=== PATIENT | male | born 1995 | race Caucasian/White ===

== ENCOUNTER 2024-12-19 09:32 | Emergency (ER) | payer OTHER, SELFPAY ==
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
[2024-12-19 09:35] VITALS: BP 143/87; PULSE 63; RESP 14; TEMP 36.4; O2SAT 99; BMI 35.0
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
--- OUTSIDE RECORDS SUMMARY | 2024-12-19 09:51 | XMS_ITS | Clinical Summary ---
Author Organization [facility] Address [address] [place] [address] Care Team Providers Care Balance Truer Name Role Phone Unavailable Primary Care Provider Unavailabl e Source Comments PLEASE NOTE, if this patient is a minor, it may be UNLAWFUL to discuss sensitive information that is contained in these records (such as FAMILY PLANNING, MENTAL HEALTH or SUBSTANCE ABUSE) with the minor patient's parent or other person without the patient's specific authorization.[facility] Social History Tobacco Use Types Packs/Day Years Used Date Smoking Tobacco: Never Assessed Social Connections Answer Date Recorded Connectedness 0 11/20/2023 Financial Resource Strain Answer Date R ecorded Financial Resource Strain 0 2021 Stress Answer Date Recorded Stress 0 03/14/2021 Physical Activity Answer Date Recorded Physical Activity 0 03/14/2021 Food Insecurity Answer Date Recorded Food 0 12/04/2023 Transportation Needs Answer Date Record ed Transportation 0 03/14/2021 Housing Stability Answer Date Recorded Housing 0 03/14/2021 Safety and Environment Answer Date Az rded Safety 0 03/14/2021 Utilities Answer Date Recorded Utilities 0 03/14/2021 Employment Answer Date Recorded Stress 0 11/20/2023 Sex and Gender Information Value Date Recorded Sex Assigned at Not on file Legal Sex Male 8:55 AM PST Gender Identity Not on file Sexual Orientation Not on file Plan of Treatment Health Maintenance Due Date Last Done Comments Anxiety Screening 1995 Hepatitis C Screening 1995 Tobacco Screening 1995 HIV Screening 06/22/2010 Hypertension Screening (#1) 06/22/2013 Imm-Hepatitis B (1 of 3 - 19 + 3-dose series) 06/22/2014 Imm-DTaP/Tdap/Td (7 - Td or Tdap) 09/17/2017 09/18/2007, 1999, 11/23/1996, Additional history exists Imm-HPV (1 - 3-dose SCDM series) 06/22/2022 Alcohol and Drug Screen 03/10/2024 Depression Annual Screen 03/10/2024 [id number] ( season) 2024 021, 07/23/2020 Imm-Influenza (#1) 2024 02/19/2011, 02/16/2003
[2024-12-19 10:40] VITALS: BP 140/85; PULSE 69; RESP 16; TEMP 36.4; O2SAT 99
[2024-12-19 10:43] VITALS: BP 140/85; PULSE 69; RESP 16; TEMP 36.4; O2SAT 99
== END 2024-12-19 10:46 | disposition home or self-care (01) ==
PROVIDERS: Emergency Provider Emergency Medicine
DX: S46.912A Strain of unspecified muscle, fascia and tendon at shoulder and upper arm level, left arm, initial encounter (principal); V43.52XA Car driver injured in collision with other type car in traffic accident, initial encounter; Y93.9 Activity, unspecified; Y92.9 Unspecified place or not applicable; Y99.9 Unspecified external cause status; M25.512 Pain in left shoulder
CPT/HCPCS: 73030; 99283; 99284

== ENCOUNTER → 2024-12-19 10:01 | Outpatient (BNV) | payer SELFPAY | PROVIDERS: Emergency Provider Emergency Medicine; Visit Provider Radiology Diagnostic Radiology | DX: M25.512 Pain in left shoulder (principal); V89.2XXA Person injured in unspecified motor-vehicle accident, traffic, initial encounter | CPT/HCPCS: 73030 ==